=== PATIENT | male | born 1995 | race African-American/Black ===

== ENCOUNTER 2023-07-29 10:12 | Emergency (ER) | payer SELFPAY ==
[2023-07-29 10:13] VITALS: BP 144/79; PULSE 87; RESP 15; TEMP 36.6; O2SAT 97
--- NOTE | 2023-07-29 10:16 | ECG_ITS ---
[facility] Test Date: 2023-07-29 Pat Name: Nan Petty Sr Department: Room: Gender: Male Copy Coordinator: : 1995 Requested By: Marisa Lara Order Number: [id number] Brigido MD: Jonathon Aaron M.D. Measurements Intervals [place] Rate: 72 P: 6 TN: 175 QRS: 87 QRSD: 115 T: 23 QT: 383 QTc: 421 Interpretive Statements SINUS RHYTHM POSSIBLE INFERIOR MYOCARDIAL INFARCTION , PROBABLY OLD [30 ms Q WAVE IN II/aVF] No previous ECG available for comparison Electronically Signed On 07-29-2023 12:29:50 CDT by Jonathon Aaron M.D. [email or web address]
--- NOTE | 2023-07-29 10:29 | PC.PHAR ---
pt unable to verify medications
[2023-07-29 11:55] LABS: Basophils # 0.1 10^3/uL (0.0-0.1); Basophils % 0.3 %; Eosinophils # 0.1 10^3/uL (0.0-0.8); Eosinophils % 0.4 %; Hematocrit 40.4 % (37-53); Lymphocytes # 1.2 10^3/uL (0.8-4.8); Lymphocytes % 6.6 %; Mean Corpuscular HGB Conc 34.7 g/dL (30-55); Mean Corpuscular Volume 92.4 fl (82-101); Mean Platelet Volume 10.1 fL (7.4-10.4); Monocytes # 1.2 10^3/uL (0.2-0.9); Monocytes % 6.5 %; Neutrophils # 15.84 10^3/uL (1.8-7.7); Neutrophils % 85.6 %; Nucleated Red Blood Cells % 0 %; Platelet Count 320 10^3/cmm (157-399); Red Blood Count 4.37 10^6/uL (3.85-5.65); Red Cell Distribution Width 11.4 % (12.1-15.1); White Blood Count 18.51 10^3/uL (3.29-11.43)
[2023-07-29 12:33] LABS: Alanine Aminotransferase 24 U/L (0-41); Albumin Level 4.1 g/dL (3.5-5.2); Alcohol Level 11 mg/dL (0-10); Alkaline Phosphatase 62 U/L (40-130); Anion Gap 12.2 (5-19); Aspartate Amino Transferase 25 U/L (0-40); Blood Urea Nitrogen 16 mg/dL (6-20); Calcium 9.6 mg/dL (8.5-10.5); Carbon Dioxide 27 mmol/L (22-29); Chloride 101 mmol/L (98-107); Globulin 3.6 g/dL (1.3-4.6); Glomerular Filtration Rate 109.3 mL/min (90-130); Glucose 120 mg/dL (65-115); Osmolality Calculated 284 mOsm/kg (285-295); Potassium 4.2 mmol/L (3.5-5.1); Sodium 136 mmol/L (136-145); Thyroid Stimulating Hormone 0.55 uIU/mL (0.27-4.20); Total Bilirubin 0.2 mg/dL (0.15-1.2); Total Protein 7.7 g/dL (6.6-8.7)
--- NOTE | 2023-07-29 12:33 | W.ED.PSYCHS ---
HPI - Psych General: Chief Complaint: Psychiatric Symptoms Stated Complaint: BIZARRE BEHAVIOR Time Seen by Provider: 07/29/23 10:15 History of Present Illness: Patient presents by ambulance with psychiatric type symptoms. Apparently he became very anxious and then began to laugh and saying songs. 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 Upon arrival here he is very somnolent. He will arouse. No focal motor deficits. Review of Systems Narrative: Constitutional symptoms: Negative except as documented in HPI. Skin symptoms: Negative except as documented in HPI. Eye symptoms: Negative except as documented in HPI. ENMT symptoms: Negative except as documented in HPI. Respiratory symptoms: Negative except as documented in HPI. Cardiovascular symptoms: Negative except as documented in HPI. Gastrointestinal symptoms: Negative except as documented in HPI. Genitourinary symptoms: Negative except as documented in HPI. Musculoskeletal symptoms: Negative except as documented in HPI. Neurologic symptoms: Negative except as documented in HPI. Psychiatric symptoms: Negative except as documented in HPI. Endocrine symptoms: Negative except as documented in HPI. Physical Exam Narrative: EXAM NARRATIVE: General: Somnolent but arousable, no acute distress. Skin: Warm, dry. Head: Normocephalic, atraumatic. Neck: Supple, trachea midline. Eye: Extraocular movements are intact. Ears, nose, mouth and throat: mucosa moist. Cardiovascular: Regular, Normal peripheral perfusion. Respiratory: Lungs are clear to auscultation, respirations are non-labored, breath sounds are equal, Symmetrical chest wall expansion. Gastrointestinal: Soft, Nontender, Non distended, Normal bowel sounds. Musculoskeletal: Normal ROM, no deformity. Neurological: Somnolent, No focal neurological deficit observed. Psychiatric: Cooperative Course Vital Signs: Vital signs: Vital Signs Temperature 97.8 F 07/29/23 10:13 Pulse Rate 87 07/29/23 10:13 Respiratory Rate 15 07/29/23 10:13 Blood Pressure 144/79 07/29/23 10:13 Pulse Oximetry 97 07/29/23 10:13 Oxygen Delivery Me thod Room Air 07/29/23 10:13 [facility] - Psych Medical Decision Making Patient with reported psychiatric type symptoms. concerns for infection, alcohol intoxication, cardiac issues or other medical problems prior to psychiatric admission. - Workup: labwork, ekg ordered to evaluate the pathologies and to clear the patient medically prior to psychiatric admission EKG: Time 1021 rate 72 normal sinus rhythm, No ST-T changes, no ectopy, normal MI & QRS intervals, This was reviewed and interpreted by myself the ER physician at 10:30 AM. - Medically cleared. - EKG shows no ischemic changes. - Blood alcohol level is negative, as well as salicylate and Tylenol. - Drug screen is negative except for marijuana - No signs of infection, urinalysis clear - No anemia. - BUN and creatinine are within normal limits. Lab Data 07/29/23 11:45 07/29/23 11:45 Laboratory Results WBC 18.51 10^3/uL (3.29-11.43) H 07/29/23 11:45 RBC 4.37 10^6/uL (3.85-5.65) 07/29/23 11:45 Hgb 14.00 g/dL (11.27-16.99) 07/29/23 11:45 Hct 40.4 % (37-53) 07/29/23 11:45 MCV 92.4 fl (82-101) 07/29/23 11:45 MCH 32.0 pg (27-33) 07/29/23 11:45 MCHC 34.7 g/dL (30-55) 07/29/23 11:45 RDW 11.4 % (12.1-15.1) L 07/29/23 11:45 Plt Count 320 10^3/cmm (157-399) 07/29/23 11:45 MPV 10.1 fL (7.4-10.4) 07/29/23 11:45 Neut % (Auto) 85.6 % 07/29/23 11:45 Lymph % (Auto) 6.6 % 07/29/23 11:45 [place] % (Auto) 6.5 % 07/29/23 11:45 Eos % (Auto) 0.4 % 07/29/23 11:45 Baso % (Auto) 0.3 % 07/29/23 11:45 Neut # (Auto) 15.84 10^3/uL (1.8-7.7) H 07/29/23 11:45 Lymph # (Auto) 1.2 10^3/uL (0.8-4.8) 07/29/23 11:45 [place] # (Auto) 1.2 10^3/uL (0.2-0.9) H 07/29/23 11:45 Eos # (Auto) 0.1 10^3/uL (0.0-0.8) 07/29/23 11:45 Baso # (Auto) 0.1 10^3/uL (0.0-0.1) 07/29/23 11:45 Nucleated RBC % (auto) 0 % 07/29/23 11:45 Nucleated RBCs # 0.0 /100WBC 07/29/23 11:45 Sodium 136 mmol/L (136-145) 07/29/23 11:45 Potassium 4.2 mmol/L (3.5-5.1) 07/29/23 11:45 Chloride 101 mmol/L (98-107) 07/29/23 11:45 Carbon Dioxide 27 mmol/L (22-29) 07/29/23 11:45 Anion Gap 12.2 (5-19) 07/29/23 11:45 BUN 16 mg/dL (6-20) 07/29/23 11:45 Creatinine 1.0 mg/dL (0.7-1.2) 07/29/23 11:45 GFR Calculation 109.3 mL/min (90-130) 07/29/23 11:45 Glucose 120 mg/dL (65-115) H 07/29/23 11:45 Calculated Osmolality 284 mOsm/kg (285-295) L 07/29/23 11:45 Calcium 9.6 mg/dL (8.5-10.5) 07/29/23 11:45 Total Bilirubin 0.2 mg/dL (0.15-1.2) 07/29/23 11:45 AST 25 U/L (0-40) 07/29/23 11:45 ALT 24 U/L (0-41) 07/29/23 11:45 Alkaline Phosphatase 62 U/L (40-130) 07/29/23 11:45 Total Protein 7.7 g/dL (6.6-8.7) 07/29/23 11:45 Albumin 4.1 g/dL (3.5-5.2) 07/29/23 11:45 Globulin 3.6 g/dL (1.3-4.6) 07/29/23 11:45 TSH 0.55 uIU/mL (0.27-4.20) 07/29/23 11:45 Urine Color Light yellow (Yellow) 07/29/23 13:05 Urine Appearance Clear (CLEAR) 07/29/23 13:05 Urine pH 5 (5-7) 07/29/23 13:05 Ur Specific [place] 1.010 (1.005-1.030) 07/29/23 13:05 Urine Protein Neg (Negative) 07/29/23 13:05 Urine Glucose (UA) Norm (Normal) 07/29/23 13:05 Urine Ketones Negative (Negative) 07/29/23 13:05 Urine Blood Neg (Negative) 07/29/23 13:05 Urine Nitrate Negative (Negative) 07/29/23 13:05 Urine Bilirubin Neg (Negative) 07/29/23 13:05 Urine Urobilinogen Neg mg/dL (Negative) 07/29/23 13:05 Ur Leukocyte Esterase Negative (Negative) 07/29/23 13:05 Urine RBC None /hpf (0-2) 07/29/23 13:05 Urine WBC None /hpf (0-5) 07/29/23 13:05 Ur Squamous Epith Cells None /hpf (0-5) 07/29/23 13:05 Amorphous Sediment Not Reportable 07/29/23 13:05 Urine Bacteria None /hpf (NONE) 07/29/23 13:05 Salicylates < 0.3 mg/dL (3-10) L 07/29/23 11:45 Urine Opiates Screen Negative ng/mL (Negative) 07/29/23 13:05 Acetaminophen < 5.0 ug/mL (10-30) L 07/29/23 11:45 Ur Barbiturates Screen Negative ng/mL (Negative) 07/29/23 13:05 Ur Phencyclidine Scrn Negative ng/mL (Negative) 07/29/23 13:05 Ur Amphetamines Screen Negative ng/mL (Negative) 07/29/23 13:05 U Benzodiazepines Scrn Negative ng/mL (Negative) 07/29/23 13:05 Urine Cocaine Screen Negative ng/mL (Negative) 07/29/23 13:05 U Marijuana (THC) Screen Positive ng/mL (Negative) H 07/29/23 13:05 Ethyl Alcohol 11 mg/dL (0-10) H 07/29/23 11:45 No radiology studies performed this visit Other Data Assessment and plan: -Patient appears to have had a brief acute psychosis. Etiology is unclear. -Patient denies any homicidal or suicidal ideation. He says he feels a little bit more like himself but he just did not feel like himself before. He does not seem to be any danger to himself and medically he is clear. I cannot find any reason for psychiatric or hospital admission. - Discharged home - Discussed findings and plan with patient. Answered any questions. - All laboratory values were reviewed and interpreted personally by myself, the ER physician - All imaging was reviewed and interpreted personally by myself, the ER physician. - Evaluation and treatment of this problem were appropriate in the emergency setting Discharge Plan Discharge Patient Disposition: Home Clinical Impression: Acute psychosis Condition: Stable Prescriptions: No Action Unable to Assess Discharge Orders: Discharge ED (Routine); Ordered 07/29/23 Ordered By: Marisa Waters Discharge Diet: Usual diet Discharge Activity: Increase activity as tolerated Patient Instructions: Opioid Safety, Pain Management Coding Level of Care Code ED Public Health Officer for Ines Sibley
[2023-07-29 12:44] LABS: Acetaminophen < 5.0 ug/mL (10-30); Salicylate < 0.3 mg/dL (3-10)
[2023-07-29 14:20] LABS: Amphetamines Screen Urine Negative (Negative); Barbiturates Screen Urine Negative (Negative); Benzodiazepines Screen Urine Negative (Negative); Cocaine Screen Urine Negative (Negative); Opiate Screen Urine Negative (Negative); PCP Screen Urine Negative (Negative); THC Screen Urine Positive (Negative)
[2023-07-29 14:28] LABS: Add Urine Culture? No; Bilirubin Urine Neg (Negative); Blood Urine Neg (Negative); Glucose Urine UA Norm (Normal); Ketones Urine Negative (Negative); Leukocyte Esterase Urine Negative (Negative); Nitrate Urine Negative (Negative); Protein Urine Neg (Negative); Urine Appearance Clear (CLEAR); Urine Color Light yellow (Yellow); Urobilinogen Urine Neg (Negative); pH Urine 5 (5-7)
[2023-07-29 15:05] VITALS: BP 160/88; PULSE 85; O2SAT 93
== END 2023-07-29 16:26 | disposition home or self-care (01) ==
PROVIDERS: Emergency Provider Emergency Medicine
DX: F23 Brief psychotic disorder (principal)
CPT/HCPCS: 36415; 80053; 80306; 80307; 81001; 84443; 85025; 93005; 99284